=== PATIENT | female | born 1940 | race Two or more races ===

== ENCOUNTER 2019-07-24 04:22 | Emergency (ER) | payer OTHER ==
[~2019-07-24] VITALS: Ht 152.4 cm; Wt 63.0 kg
[2019-07-24] MEDS ORDERED: LIPITOR20 MG PO (04:34)
[2019-07-24] MEDS ORDERED: CALTRATE 600+D1 EAC1 PO (04:35)
[2019-07-24] MEDS ORDERED: ORASEP SPRAY30 ML MM (07:18)
[2019-07-24] MEDS ORDERED: AMOX-CLAV 875-1 EACH PO (07:18)
[2019-07-24] MEDS ORDERED: ZYNCOF 20-400120 ML PO (07:18)
[2019-07-24] MEDS ORDERED: ALBUTEROL2.5 MG/3 M IH (07:18)
== END 2019-07-24 07:29 ==
LOC: ER 04:22
DX: J06.9 Acute upper respiratory infection, unspecified (principal)

== ENCOUNTER → 2021-07-10 | Outpatient (CLI) | payer OTHER ==
[~2021-07-10] MED LIST: ALBUTEROL2.5 MG/3 M IH; AMOX-CLAV 875-1 EACH PO; CALTRATE 600+D1 EAC1 PO; LIPITOR20 MG PO; ORASEP SPRAY30 ML MM; ZYNCOF 20-400120 ML PO
== END | disposition home or self-care (01) ==
LOC: PPH VACUNA 08:06
PROVIDERS: ATTEND Emergency Medicine Pediatric Emergency Medicine
DX: Z23 Encounter for immunization (principal)